=== PATIENT | female | born 1990 | race Two or more races ===

== ENCOUNTER 2018-11-24 19:15 | Emergency (ER) | payer SELFPAY ==
[~2018-11-24] VITALS: Ht 165.1 cm; Wt 67.6 kg
[2018-11-24 19:30] VITALS: BP 103/65
== END 2018-11-24 21:24 | disposition home or self-care (01) ==
LOC: ER 19:15
DX: R51 Headache (principal); N39.0 Urinary tract infection, site not specified; R42 Dizziness and giddiness